=== PATIENT | female | born 1955 | race Hispanic/Latino ===

== ENCOUNTER 2018-03-20 15:52 | Emergency (ER) | payer OTHER ==
[~2018-03-20] VITALS: Ht 157.5 cm; Wt 93.4 kg
[~2018-03-20 15:52] MED LIST: ATORVASTATIN CA20 MG PO; METOPROLOL TART50 MG PO
--- OUTSIDE RECORDS SUMMARY | 2018-03-20 15:54 | XMS REPORT | Clinical Summary ---
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 Disp. Refills Start End Date Status Date metoprolol tartrate 08/20/20 Active (LOPRESSOR) 100 mg tablet 17 atorvastatin (LIPITOR) 20 09/07/20 Active MG tablet 17 LINZESS 290 mcg capsule 08/20/20 Active 17 atenolol (TENORMIN) 100 11/07/19 09/09/20 Discontin MG tablet 17 17 ued Active Problems Problem Noted Date Hallux rigidus of right foot 09/28/2017 Encounters Date Type Specialty Care Team Description 11/09/2017 Procedure Pass Orthopedic Surgery 09/28/2017 Orders Only Orthopedic Surgery Ashlie Anderson MA Hallux rigidus of right foot (Primary Dx) 09/09/2017 Office Visit Orthopedic Surgery Earnest Mendenhall MD Hallux valgus (acquired), right foot (Primary Dx) 04/07/2017 Clinical Orthopedic Surgery Rogerio Montelongo MD Primary osteoarthritis of Support left knee (Primary Dx) 04/02/2017 Abstract Orthopedic Surgery Rogerio Montelongo MD after 03/19/2017 Family History Medical History Relation Name Comments Hypertension Father Relation Name Status Comments Father Social History Tobacco Use Types Packs/Day Years Used Date Never Smoker Smokeless Tobacco: Never Used Alcohol Use Drinks/Week oz/Week Comments No Sex Assigned at Date Recorded Not on file Last Filed Vital Signs Vital Sign Reading Time Taken Blood Pressure - - Pulse - - Temperature - - Respiratory Rate - - Oxygen Saturation - - Inhaled Oxygen - - Concentration Weight 90.7 kg (200 lb) 09/09/2017 1:47 PM [employer] SCH[employer] Height 157.5 cm (5' 2") 09/09/2017 1:47 PM [employer] SCH[employer]ER Body Mass Index 36.58 09/09/2017 1:47 PM [employer]W SCHEDULER Plan of Treatment Health Maintenance Due Date Last Done Comments CERVICAL CANCER SCREENING 1974 BREAST CANCER SCREENING 2003 COLON CANCER SCREENING 2003 SHINGRIX VACCINE (#1) 2003 ZOSTER VACCINE 2013 INFLUENZA VACCINE 05/11/2018 09/10/2006 Procedures Procedure Name Priority Date/Time Associated Diagnosis Comments IN ARTHROCENTESIS Routine 04/07/2017 Primary osteoarthritis of Results for this ASPIR&/INJ MAJOR JT/BURSA 1:18 PM CDT left knee procedure are in the W/O US results section. after 03/19/2017 Results * XR Foot 3+ Vw Right (09/09/2017 1:50 PM) Specimen Performing Laboratory [facility] [address] [place] [id number] Narrative 3 views of the right foot show significant hallux rigidus. There is collapse of the joint. There is a large lateral spur and a large dorsal spur along the metatarsal head. There is also a dorsal spur along the proximal phalanx of the hallux. There is a wire within the proximal phalanx of the hallux consistent with a previous surgery. The remaining bones and joints on the right side appeared to be normal. There is a hallux varus deformity of the left. * Large Joint Arthrocentesis (04/07/2017 1:18 PM) Narrative Rogerio Montelongo MD 04/07/20171:18 PM Large Joint Arthrocentesis Consent given by: patient Timeout: Immediately prior to procedure a time out was called to verify the correct patient, procedure, equipment, technical support coordinator and site/side marked as required Supporting Documentation Indications: pain Procedure Details Preparation: Patient was prepped and draped in the usual sterile fashion Ultrasound guided: no Location: knee - L knee Left side: Approach: anterolateral Left knee medications administered: 2 mL lidocaine 10 mg/mL (1 %); 80 mg methylPREDNISolone acetate 40 mg/mL Patient tolerance: patient tolerated the procedure well with no immediate complications after 03/19/2017 Insurance Payer Benefit Subscriber ID Type Phone Address Plan / Group AETNA AETNA PPO xxxxxxxxxx PPO OPEN CHOICE
[2018-03-20] MEDS ORDERED: MECLIZINE HCL 12.5 MG TAB PO ONE (16:30)
[2018-03-20 16:45] LABS: BASOPHILS # (AUTO) 0.1 (0.0-0.1); BASOPHILS % 0.4 % (0.0-1.0); EOSINOPHILS # (AUTO) 0.1 (0.0-0.4); EOSINOPHILS % 0.8 % (0.0-6.0); HEMATOCRIT 45.8 % (34.2-44.1); HEMOGLOBIN 15.8 g/dL (12.0-16.0); LYMPHOCYTES # (AUTO) 1.9 (1.0-3.2); LYMPHOCYTES % 14.8 % (18.0-39.1); MEAN CORPUSCULAR HGB CONC 34.5 g/dL (31-35); MEAN CORPUSCULAR VOLUME 92.9 fL (81-99); MONOCYTES # (AUTO) 0.5 (0.2-0.8); MONOCYTES % 3.8 % (4.4-11.3); NEUTROPHILS # (AUTO) 10.2 (2.1-6.9); NEUTROPHILS % 79.8 % (38.7-80.0); PLATELET COUNT 230 x10e3/uL (140-360); RED BLOOD COUNT 4.93 x10e6/uL (3.6-5.1); RED CELL DISTRIBUTION WIDTH 13.2 % (11.7-14.4)
[2018-03-20 17:05] LABS: ALANINE AMINOTRANSFERASE 33 IU/L (0-55); ALBUMIN 4.3 g/dL (3.5-5.0); ALBUMIN/GLOBULIN RATIO 1.2 (0.8-2.0); ALKALINE PHOSPHATASE 97 IU/L (40-150); ANION GAP 17.2 mmol/L (8-16); BLOOD UREA NITROGEN 11 mg/dL (7-26); BUN/CREATININE RATIO 14 (6-25); CALCIUM 10.2 mg/dL (8.4-10.2); CARBON DIOXIDE 26 mmol/L (22-29); CHLORIDE 104 mmol/L (98-107); CREATINE KINASE 57 IU/L (29-168); CREATININE, SERUM 0.78 mg/dL (0.57-1.11); EST GLOMERULAR FILTRATION RATE > 60 ML/MIN (60-); GLUCOSE 157 mg/dL (74-118); POTASSIUM 4.2 mmol/L (3.5-5.1); SODIUM 143 mmol/L (136-145)
[2018-03-20] MEDS ORDERED: SODIUM CHLORIDE 0.9% 500ML 500 ML IV ONE (17:30)
[2018-03-20] MEDS ORDERED: ONDANSETRON HCL INJ 2 MG/ML VIAL IV ONE (17:30)
== END 2018-03-20 19:51 | disposition home or self-care (01) ==
LOC: ER 15:52
DX: R42 Dizziness and giddiness (principal); H81.11 Benign paroxysmal vertigo, right ear; I10 Essential (primary) hypertension; E78.5 Hyperlipidemia, unspecified
CPT/HCPCS: 36415; 80053; 82550; 82553; 84484; 85025; 93005; 99284; J2405; J7040